=== PATIENT | male | born 1990 | race Caucasian/White ===

== ENCOUNTER 2023-06-25 20:56 | Emergency (ER) | payer OTHER, SELFPAY ==
--- NOTE | ~2023-06-25 | CT_ITS ---
EXAMINATION: CT abdomen pelvis wo con DATE: 06/26/2023 00:08 INDICATION: Flank pain. TECHNIQUE: Computed tomography (CT) of the abdomen and pelvis was performed without intravenous contr ast. Automated exposure control and iterative reconstruction technique were employed. The dose-length product was 582.32 mGy-cm. COMPARISON: None. FINDINGS: The visualized portions of lung bases are clear without pneumonia or pleural effusion. The heart size is normal. No pericardial effusion. The liver, gallbladder, spleen, pancreas, adrenal glan ds, and left kidney are normal. There are 2 stones in right kidney measuring up to 3 mm. There is a l eft inguinal hernia containing fat. There are no dilated loops of bowel. The appendix is normal. Ther e are no pathologically enlarged lymph nodes. There is no free intraperitoneal fluid. There is mild l umbar spondylosis. IMPRESSION: 1. Nonobstructing right kidney stones. 2. Left inguinal hernia containing fat. Reviewed, dictated and finalized at location E.
[2023-06-25 20:57] VITALS: BP 154/108; PULSE 81; RESP 20; TEMP 36.3; O2SAT 100
[2023-06-25 21:48] LABS: Basophils Absolute Auto 0.1 K/mm3 (0.0-0.1); Basophils Percent Auto 1.1 % (0.2-1.2); Eosinophils Absolute Auto 0.4 K/mm3 (0-0.3); Eosinophils Percent Auto 2.9 % (0-4.4); Hematocrit 47.1 % (42.0-52.0); Hemoglobin 14.9 g/dL (14.0-18.0); Immature Granulocyte Absolute 0.05 K/mm3 (0.00-0.031); Immature Granulocyte Percent A 0.4 % (0-0.5); Lymphocytes Absolute Auto 2.92 K/mm3 (0.9-3.2); Lymphocytes Percent Auto 22.5 % (18.3-44.2); Mean Corpuscular HGB Conc 31.6 g/dl (32-36); Mean Corpuscular Hemoglobin 29.9 pg (26-34); Mean Corpuscular Volume 94.6 fl (80-100); Mean Platelet Volume 10.4 fl (7.4-10.4); Monocytes Absolute Auto 1.1 K/mm3 (0.1-0.6); Monocytes Percent Auto 8.2 % (2.6-8.5); Neutrophils Absolute Auto 8.4 K/mm3 (1.3-6.7); Neutrophils Percent Auto 64.9 % (45.5-73.1); Platelet Count Result 392 k/mm3 (150-375); Red Blood Count 4.98 M/mm3 (4.6-6.20); Red Cell Distribution Width 14.1 % (11.5-14.5)
[2023-06-25 21:54] LABS: Bacteria Urine None Seen /hpf; Non Pathogenic Casts 0-2; RBC Urine 0-2 /hpf (0-2); Squamous Epithelial Cell Urine None Seen /hpf (Few); WBC Urine 0-5 /hpf (0-3)
[2023-06-25 21:58] LABS: Alanine Aminotransferase 41 U/L (6-50); Albumin Level 4.4 g/dL (3.5-5.1); Alkaline Phosphatase 59 U/L (38-126); Anion Gap 6 mmol/L (8-16); Aspartate Amino Transferase 54 U/L (17-59); Bilirubin,Total 0.7 mg/dL (0.2-1.3); Blood Urea Nitrogen 8 mg/dL (9-20); Calcium 9.6 mg/dL (8.4-10.2); Carbon Dioxide 30 mmol/L (22-30); Chloride 101 mmol/L (98-107); Estimated CRCL calculation 100 ml/min; Estimated Glomerular Filt Rate > 60; Glucose 126 mg/dL (65-110); Lipase 202 U/L (23-300); Potassium 4.5 mmol/L (3.4-5.0); Sodium 137 mmol/L (137-145)
[2023-06-25 22:06] LABS: Appearance Urine Clear (Clear); Color Urine Yellow (Yellow)
[2023-06-25 22:07] LABS: Bilirubin Urine Negative (Negative); Blood Urine Trace-Lysed (Negative); Glucose Urine UA Negative (Negative); Ketones Urine Negative (Negative); Nitrate Urine Negative (Negative); Protein Urine Negative (Negative); Specific Grav Ur 1.015 (1.001-1.035); Urobilinogen Urine 0.2 mg/dL (<2.0); pH Urine 6.5 (5.0-9.0)
[2023-06-25 22:08] LABS: Add Urine Microscopic? YES; Leukocyte Esterase Ur Negative LEU/UL (Negative)
--- NOTE | 2023-06-25 22:54 | PC.NURSE ---
report given to Kareem HUBBARD
--- NOTE | 2023-06-26 00:15 | ED.BACK ---
HPI - Back Pain/Injury General Chief Complaint: Back Pain/Injury Stated Complaint: back pain Time Seen by Provider: 06/25/23 22:11 History of Present Illness HPI Narrative: Patient is a 31-year-old male who presents to the emergency department this evening complaining of bilateral lower back /flank pain. Patient states the pain initially started few days ago and has been intermittent. Patient states that yesterday pain did resolve but today it returned again and has been worse than what it was initially. Patient denies any history of kidney stones and denies any urinary symptoms at this time including dysuria or hematuria. He denies any nausea or vomiting and any abdominal pain. Pain does not radiate and stays in the flank regions. Patient states it is worse on the right side. Denies any recent falls or trauma. There are no other modifying, alleviating, or precipitating factors at this time. Related Data Allergies Allergy/AdvReac Type Severity Reaction Status Date / Time No Known Allergies Allergy Verified 06/25/23 21:26 Review of Systems Review of Systems: All systems are reviewed and are negative unless stated otherwise in the HPI. PMFSH Comments Patient denies any significant past medical or surgical history, denies any family history and denies any alcohol abuse or illicit drug use. Exam Narrative: General: Alert, awake, afebrile, in no acute distress. HEENT: PERRL, no rhinorrhea, no post nasal drip, oropharynx clear. Neck: Trachea midline, no JVD, no lymphadenopathy. Cardiovascular: Regular rate and rhythm, no murmurs, rubs or gallops, no peripheral edema. Respiratory: Clear to auscultation bilaterally, no tachypnea, no wheezing, no rhonchi, no rubs, no respiratory distress. Abdomen: Soft, nontender, nondistended, no rebound, no guarding, no peritoneal signs. Musculoskeletal: No joint swelling or deformity, normal muscle tone. Back: No midline tenderness to palpation over the cervical, thoracic and lumbar spine no step-offs or deformities. Skin: No rashes or petechia, no signs of infection. Psychiatric: Alert and oriented, normal behavior and judgment for situation. Neurological: Alert and oriented to person, place, and time. Follows all commands. No focal deficits, speech is clear and fluent. Course Vital Signs Vital signs: Vital Signs Temperature 97.3 F L 03/25/24 20:57 Pulse Rate 81 06/25/23 20:57 Respiratory Rate 20 06/25/23 20:57 Blood Pressure 154/108 H 06/25/23 20:57 Pulse Oximetry 100 06/25/23 20:57 Oxygen Delivery Room Air 06/25/23 20:57 Temperature 98.6 F 06/26/23 00:41 Pulse Rate 82 06/26/23 00:41 Respiratory Rate 14 06/26/23 00:41 Blood Pressure 127/88 06/26/23 00:41 Pulse Oximetry 99 06/26/23 00:41 Oxygen Delivery Room Air 06/25/23 20:57 MDM - Back Pain/Injury MDM Narrative Medical decision making narrative: The patient was evaluated by myself in the emergency department. History is obtained from patient who is an independent historian and physical exam was performed. External medical records were reviewed at this time. IV was established and pertinent tests were ordered. Patient was administered 15 mg IV Toradol for pain. Laboratory results obtained revealing a leukocytosis of 13, otherwise unremarkable. Urinalysis revealed trace blood. Imaging studies obtained included CT abdomen and pelvis with IV contrast which was independently interpreted by me revealing a 3 mm and a 4 mm right upper pole renal stones, which is pending final radiology interpretation. Differential diagnosis considerations include muscle strain, kidney stones. Comorbidities impacting this visit include none. I have evaluated and discussed social determinants of health with the patient that could potentially impact subsequent diagnosis and treatment plans. On repeat assessment of the patient, reevaluation revealed that the patient is doing well and is in
[2023-06-26] MEDS: KETOROLAC 15 MG/ML VIAL (*BKC) IV PUSH (00:31)
[2023-06-26 00:41] VITALS: BP 127/88; PULSE 82; RESP 14; TEMP 37; O2SAT 99
[2023-06-26 01:49] VITALS: BP 141/87; PULSE 86; RESP 16; O2SAT 100
== END 2023-06-26 01:49 | disposition home or self-care (01) ==
PROVIDERS: Emergency Provider Emergency Medicine
DX: N20.0 Calculus of kidney (principal); K40.90 Unilateral inguinal hernia, without obstruction or gangrene, not specified as recurrent
CPT/HCPCS: 36415; 74176; 80053; 81001; 83690; 85025; 96374; 99284; J1885